=== PATIENT | male | born 1995 | race African-American/Black ===

== ENCOUNTER 2020-08-19 22:40 | Emergency (ER) | payer OTHER, SELFPAY ==
--- NOTE | ~2020-08-19 | CT_ITS ---
EXAMINATION: CT abdomen pelvis w con DATE: 08/20/2020 00:59 INDICATION: Abdominal pain. TECHNIQUE: Computed tomography (CT) of the abdomen and pelvis was performed with 100 mL Omnipaque 350 intravenous contrast. Automated exposure control and iterative reconstruction technique were employe d. The dose-length product was 676.10 mGy-cm. COMPARISON: None. FINDINGS: The visualized portions of the lung bases are clear without pneumonia or pleural effusion. The heart size is normal. No pericardial effusion. The liver, gallbladder, spleen, pancreas, adrenal glands, and kidneys are normal. There are no dilated loops of bowel. The appendix is normal. There ar e no pathologically enlarged lymph nodes. There is no free intraperitoneal fluid. The bones are unrem arkable. IMPRESSION: 1. No etiology for the patient's symptoms. Reviewed, dictated and finalized at location A.
[2020-08-19 22:57] VITALS: BP 133/86; PULSE 83; RESP 16; TEMP 36.4; O2SAT 97
[2020-08-19 23:31] LABS: Basophils Absolute Auto 0.1 K/mm3 (0.0-0.1); Basophils Percent Auto 0.5 % (0.2-1.2); Eosinophils Absolute Auto 0.2 K/mm3 (0-0.3); Hemoglobin 13.8 g/dL (14.0-18.0); Immature Granulocyte Absolute 0.04 K/mm3 (0.00-0.031); Immature Granulocyte Percent A 0.3 % (0-0.5); Lymphocytes Absolute Auto 3.44 K/mm3 (0.9-3.2); Lymphocytes Percent Auto 29.3 % (18.3-44.2); Mean Corpuscular HGB Conc 32.9 g/dl (32-36); Mean Corpuscular Hemoglobin 27.5 pg (26-34); Mean Corpuscular Volume 83.8 fl (80-100); Monocytes Absolute Auto 1.1 K/mm3 (0.1-0.6); Monocytes Percent Auto 9.1 % (2.6-8.5); Neutrophils Absolute Auto 6.9 K/mm3 (1.3-6.7); Neutrophils Percent Auto 58.8 % (45.5-73.1); Platelet Count Result 305 k/mm3 (150-375); Red Blood Count 5.01 M/mm3 (4.6-6.20); Red Cell Distribution Width 12.8 % (11.5-14.5); White Blood Count 11.7 K/mm3 (4.5-10.0)
[2020-08-19 23:45] LABS: Potassium 3.7 mmol/L (3.4-5.0)
[2020-08-19 23:48] LABS: Alanine Aminotransferase 63 U/L (4-50); Albumin Level 4.3 g/dL (3.5-5.1); Alkaline Phosphatase 79 U/L (38-126); Anion Gap 6 mmol/L (8-16); Aspartate Amino Transferase 35 U/L (17-59); Bilirubin,Total 0.4 mg/dL (0.2-1.3); Blood Urea Nitrogen 15 mg/dL (9-20); Calcium 9.5 mg/dL (8.4-10.2); Carbon Dioxide 29 mmol/L (22-30); Chloride 107 mmol/L (98-107); Estimated CRCL calculation 106 ml/min; Estimated Glomerular Filt Rate > 60; Glucose 108 mg/dL (75-110); Lipase 67 U/L (23-300); Sodium 142 mmol/L (137-145)
[2020-08-20 00:41] LABS: Add Urine Microscopic? NO; Appearance Urine Clear (Clear); Bilirubin Urine Negative (Negative); Blood Urine Negative (Negative); Color Urine Yellow (Yellow); Glucose Urine UA Negative (Negative); Ketones Urine Negative (Negative); Leukocyte Esterase Ur Negative LEU/UL (Negative); Nitrate Urine Negative (Negative); Protein Urine Negative (Negative); Specific Grav Ur 1.018 (1.001-1.035); Urobilinogen Urine Negative mg/dL (<2.0)
[2020-08-20] MEDS: ONDANSETRON INJ 4 MG/2 ML VIAL IV PUSH (00:54)
[2020-08-20] MEDS: SODIUM CHLORIDE 0.9% IV 1,000 ML 999 ML IV CONT (00:54)
--- NOTE | 2020-08-20 01:02 | ED.GENADULT ---
HPI - General Adult General Chief complaint: Abdominal Pain Stated complaint: Abd pain Time Seen by Provider: 08/19/20 23:42 History of Present Illness HPI narrative: Patient is a 24-year-old gentleman who presents to emergency department chief complaint of abdominal pain. Patient states that he has pain in the periumbilical area reports that is not improved by anything nor is it worsened by anything. Patient states that the pain does, radiate to his lower quadrants patient states the pain is an aching-like Related Data Allergies Allergy/AdvReac Type Severity Reaction Status Date / Time No Known Allergies Allergy Verified 08/19/20 23:14 Review of Systems Review of Systems: Narrative: A 10 system review of systems was completed on the patient and is negative except for what is stated in the HPI. Nursing and ancillary documentation was reviewed. PMFSH Comments Patient denies past medical history Social history patient denies illicit drug use Exam Narrative: Exam Narrative: GENERAL: Well-appearing, well-nourished, and in no acute distress. HEAD: Normocephalic, atraumatic. EYES: PERRLA and EOMI. ENT: Nares clear, no rhinorrhea or epistaxis. Mucous membranes moist. NECK: Supple. CHEST: Clear to auscultation. No respiratory distress. HEART: Regular rate and rhythm. No murmur heard. Normal peripheral pulses. ABDOMEN: Soft, mild tenderness to palpation, nondistended, normal active bowel sounds. EXTREMITIES: Normal range of motion. No edema. SKIN: Warm, dry, no rash. NEURO: No focal deficits. Alert and oriented x3. PSYCH: Normal mood and affect. Course Course Emergency Course: CT scan shows no acute abnormalities Vital Signs Vital signs: Vital Signs Temperature 36.4 C L 08/19/20 22:57 Pulse Rate 83 08/19/20 22:57 Respiratory Rate 16 08/19/20 22:57 Blood Pressure 133/86 08/19/20 22:57 Pulse Oximetry 97 08/19/20 22:57 Temperature 36.4 C L 08/19/20 22:57 Pulse Rate 70 08/20/20 01:07 Respiratory Rate 16 08/20/20 01:07 Blood Pressure 119/83 08/20/20 01:07 Pulse Oximetry 98 08/20/20 01:07 Medical Decision Making Vital Signs Vital Signs: Vital Signs Temperature 36.4 C L 08/19/20 22:57 Pulse Rate 83 08/19/20 22:57 Respiratory Rate 16 08/19/20 22:57 Blood Pressure 133/86 08/19/20 22:57 Pulse Oximetry 97 08/19/20 22:57 Temperature 36.4 C L 08/19/20 22:57 Pulse Rate 70 08/20/20 01:07 Respiratory Rate 16 08/20/20 01:07 Blood Pressure 119/83 08/20/20 01:07 Pulse Oximetry 98 08/20/20 01:07 Lab Data Result diagrams: 08/19/20 23:24 08/19/20 23:24 Labs: Lab Results 08/19/20 08/19/20 08/20/20 Range/Units 23:24 23:24 00:26 WBC 11.7 H (4.5-10.0) K/mm3 RBC 5.01 (4.6-6.20) M/mm3 Hgb 13.8 L (14.0-18.0) g/dL Hct 42.0 (42.0-52.0) % MCV 83.8 (80-100) fl MCH 27.5 (26-34) pg MCHC 32.9 (32-36) g/dl RDW 12.8 (11.5-14.5) % Plt Count 305 (150-375) k/mm3 MPV 9.0 (7.4-10.4) fl Immature Gran % (Auto) 0.3 (0-0.5) % Neut % (Auto) 58.8 (45.5-73.1) % Lymph % (Auto) 29.3 (18.3-44.2) % Bowie % (Auto) 9.1 H (2.6-8.5) % Eos % (Auto) 2.0 (0-4.4) % Baso % (Auto) 0.5 (0.2-1.2) % Lymph # (Auto) 3.44 H (0.9-3.2) K/mm3 Bowie # (Auto) 1.1 H (0.1-0.6) K/mm3 Eos # (Auto) 0.2 (0-0.3) K/mm3 Baso # (Auto) 0.1 (0.0-0.1) K/mm3 Abs Immat Gran (auto) 0.04 H (0.00-0.031) K/mm3 Absolute Neuts (auto) 6.9 H (1.3-6.7) K/mm3 Absolute Nucleated RBC 0.0 (0.0-0.012) K/mm3 Nucleated RBC % 0.0 (0.0-0.2) % Sodium 142 (137-145) mmol/L Potassium 3.7 (3.4-5.0) mmol/L Chloride 107 (98-107) mmol/L Carbon Dioxide 29 (22-30) mmol/L Anion Gap 6 L (8-16) mmol/L BUN 15 (9-20) mg/dL Creatinine 1.10 (0.7-1.3) mg/dL Estim Creat Clear Calc 106 ml/min Estimated GFR > 60 (59 - ) Glucose 108 (75-110) mg/dL
[2020-08-20 01:07] VITALS: BP 119/83; PULSE 70; RESP 16; O2SAT 98
[2020-08-20 02:30] VITALS: BP 119/84; PULSE 57; RESP 16; O2SAT 100
== END 2020-08-20 02:40 | disposition home or self-care (01) ==
PROVIDERS: Emergency Provider Emergency Medicine
DX: R10.84 Generalized abdominal pain (principal)
CPT/HCPCS: 36415; 74177; 80053; 81003; 83690; 85025; 96361; 96374; 99284; J2405; J7030; Q9967

== ENCOUNTER 2022-02-05 18:02 | Emergency (ER) | payer OTHER, SELFPAY ==
[2022-02-05 18:15] VITALS: BP 128/59; PULSE 74; RESP 20; TEMP 36.6; O2SAT 100
--- NOTE | 2022-02-05 18:38 | ED.EYEPROB ---
HPI - Eye Problem General Chief complaint: Eye Problems Stated complaint: fb in left eye Time Seen by Provider: 02/05/22 18:20 Source: patient Mode of arrival: ambulatory Limitations: no limitations History of Present Illness HPI Narrative: Mr. Nguyen is a 26-year-old male patient presenting to the clinic today with complaints of possible foreign body in his left eye. Ports that he was playing sand volleyball yesterday and thinks some sand got into his eye. He reports left eye swelling and discomfort. Related Data Allergies Allergy/AdvReac Type Severity Reaction Status Date / Time No Known Allergies Allergy Verified 02/05/22 18:31 Review of Systems Review of Systems: Pertinent positives per HPI. Patient denies any fever, chills, rash, headache, visual changes, dizziness, cough, runny nose, sore throat, shortness of breath, chest pain, palpitations, nausea, vomiting, diarrhea, constipation, abdominal pain, or any urinary issues. PMFSH Comments At the time of my signature, I reviewed and agree with the nursing past medical, surgical, social, and family history. There is no relevant family history pertinent to the patient complaint. Exam Narrative: General: Well-developed, well nourished, in no apparent distress Head: Normocephalic, atraumatic Eyes: Pupils equally round and reactive to light bilaterally, EOM intact, right sclera and conjunctive clear, left sclera injected with mild redness to the conjunctiva, no discharge, left upper lid swelling, Pemberton lamp exam performed and found corneal abrasion at 11:00 of the pupil. No obvious foreign body visualized. Cardio: Regular rate and rhythm, s1 and s2 normal, no murmur appreciated. Resp: Clear to auscultation bilaterally anteriorly and posteriorly, no rhonchi, rales, wheezing or rubs Course Course Emergency Course: Portions of this record may have been created with voice recognition software. Level of Care: Express Care Visit Vital Signs Vital signs: Vital Signs Temperature 36.6 C 02/05/22 18:15 Pulse Rate 74 02/05/22 18:15 Respiratory Rate 20 02/05/22 18:15 Blood Pressure 128/59 L 02/05/22 18:15 Pulse Oximetry 100 02/05/22 18:15 Oxygen Delivery Room Air 02/05/22 18:15 Temperature 36.6 C 09/04/22 18:15 Pulse Rate 74 02/05/22 18:15 Respiratory Rate 20 02/05/22 18:15 Blood Pressure 128/59 L 02/05/22 18:15 Pulse Oximetry 100 02/05/22 18:15 Oxygen Delivery Room Air 02/05/22 18:15 Vital signs reviewed Procedures FB Removal Eye Foreign Body #1: Foreign Body Removal Date: 02/05/22 Foreign Body Removal Narrative: Two drops of topical anesthetic (tetracaine) was instilled into left eye. Anesthesia was appropriate fluorescein stain of the left eye was performed corneal abrasion visualized at 11:00 just outside the pupil, NO FB, ulcer or dendritic lesions noted. Upper and lower lid lid was everted and no FB or lesions were noted. NO Danny sign. Normal saline irrigation eye solution was performed and the patient tolerated the procedure well, no adverse reaction or complications. MDM - Eye Problem MDM Narrative Medical decision making narrative: At the time of visit patient is resting comfortably on the exam table. Pemberton lamp exam was performed and it was found the patient had a corneal abrasion at 11:00. No foreign body was visualized. We will send in prescription for some E-Mycin ointment and supportive measures were discussed with the patient he voiced understanding of discharge instructions and agrees to the treatment plan. Differential Diagnosis Differential diagnosis: Likely corneal abrasion, conjunctivitis, ruptured globe and other (Foreign body in left eye) Discharge Plan Discharge Clinical Impression: Corneal abrasion Qualifiers: Encounter type: initial encounter Laterality: left Qualified Code(s): S05.02XA - Injury of conjunctiva and corneal abrasion without foreign body, left eye, initial encounter
== END 2022-02-05 18:53 | disposition home or self-care (01) ==
PROVIDERS: Emergency Provider Nurse Practitioner Family
DX: S05.02XA Injury of conjunctiva and corneal abrasion without foreign body, left eye, initial encounter (principal); X58.XXXA Exposure to other specified factors, initial encounter
CPT/HCPCS: 99213; A9270; G0463

== ENCOUNTER 2025-02-28 08:16 | Emergency (ER) | payer OTHER, SELFPAY ==
--- OUTSIDE RECORDS SUMMARY | 2025-02-28 08:19 | XMS_ITS | Clinical Summary ---
Author Organization [facility] Address [address] [place] [address] Phone Care Team Providers Care Heddler Name Role Phone Provider, None Primary Care Provider Unavailabl e Allergies No known active allergies Medications HYDROcodone-pramod taminophen (NORCO) 5-325 MG TabletIndicatio ns:Closed fracture of right talus Take 1-2 Tablets by mouth every 4 hours as needed for Moderate or more severe pain. 20 Tablet 04/11/2021 Active Active Problems No known active problems Family History Medical History Relation Name Comments No Known Problems Father Asthma Maternal Grandmother Diabetes Maternal Grandmother Hypertension Maternal Grandmother No Known Problems Mother Alzheimer's Disease Paternal Grandfather Relation Name Status Comments Father Alive Maternal Grandfather Alive Maternal Grandmother Alive Mother Alive Paternal Grandfather Paternal Grandmother Alive Social History Tobacco Use Types Packs/Day Years Used Date Smoking Tobacco: Former Cigarettes Smokeless Tobacco: Never Tobacco Cessation:Ready to Q uit: No; Counseling Given: Yes Alcohol Use Standard Drinks/Week Comments Yes 0 (1 standard drink = 0.6 oz pur e alcohol) ocassionally Sexually Active Control Partners Comments Yes Female Sex and Gender Information Value Date Recorded Sex Assigned at Not on file Legal Sex Male 12:04 AM CDT Gender Identity Not on file Sexual Orientation Not on file Last Filed Vital Signs Vital Sign Reading Time Taken Comments Blood Pressure 115/68 04/11/2021 10:04 PM [employer] Pulse 72 04/11/2021 8:26 PM [employer] Temperature 36.4 C (97.6 F) 04/11/2021 8:26 PM [employer] Respiratory Rate 18 04/11/2021 8:26 PM [employer] Oxygen Saturation 99% 04/11/2021 8:26 PM [employer] Inhaled Oxygen Concentration - - Weight 97.5 kg (215 lb) 04/11/2021 8:26 PM [employer] Height 177.8 cm (5' 10) 04/11/2021 8:26 PM [employer] Body Mass Index 30.85 04/11/2021 8:26 PM [employer] Plan of Treatment Health Maintenance Due Date Last Done Comments Hepatitis C Virus (HCV) Screening 1993 Human Papillomavirus (HPV) Immunization (1 - 3-dose SCDM series) 2020 Influenza Immunization (#1) 2025 SARS-COV-2 Immunization ( season) 2025 Respiratory Syncytial Virus (RSV) Immunization (Adult) (1 - 1-dose 75+ series) 2068 Hepatitis B Immunization Completed 995, 01/19/1994, 1993 DTaP/Tdap/Td Immunization Discontinued 2006, 07/14/1994, 04/21/1994, Additional history exists TdaP Immunization Completed 12/18/2006 Meningococcal Immunization (ACWY) Completed 12/07/2011, 12/18/2006 Pneumococcal Immunization Combined Aged Out No longer eligible based on patient's age to complete this topic Rotavirus Immunization Aged Out No lo nger eligible based on patient's age to complete this topic Insurance [employer] [facility] MEDICAID PENDING on file MEDICAID [place] Care Teams Heddler Relationship Specialty Start Date End Date Provider, None [place] PCP - General 03/12/17
[2025-02-28 08:22] VITALS: BP 151/87; PULSE 65; RESP 18; TEMP 36.5; O2SAT 100
--- NOTE | 2025-02-28 08:26 | ED.EYEPROB ---
HPI - Eye Problem General Chief complaint: Eye Problems Stated complaint: left eye swollen Time Seen by Provider: 02/28/25 08:26 Source: patient Mode of arrival: ambulatory Limitations: no limitations History of Present Illness HPI Narrative: 29 y/o male presented for c/o swelling around the left eye. Onset yesterday. States he developed a red rash to the forehead and eye yesterday as well. Says the eye is more swollen this morning. Has not applied anything in attempt to treat. Denies headache, vision changes, photophobia, eye pain or drainage. Denies itching to the rash. Pt denies any new exposures, he admits to working with mosquito chemicals but nothing new. chief complaint: eye pain Related Data Allergies Allergy/AdvReac Type Severity Reaction Status Date / Time No Known Allergies Allergy Verified 02/28/25 08:28 Review of Systems Review of Systems: CONSTITUTIONAL: Denies body aches, fever, chills EYES: Endorses swelling around left eye Denies visual changes, FB sensation, photophobia ENT: Denies rhinorrhea, congestion, sore throat, or otalgia. CARDIOVASCULAR: Denies chest pain, palpitations RESPIRATORY: Denies cough or dyspnea. SKIN: reports rash on face, denies itching MUSCULOSKELETAL: Denies back pain, joint pain, or myalgia. NEUROLOGIC: Denies headache, numbness, tingling, or weakness. All systems reviewed & are unremarkable except as noted in HPI and below PMFSH Comments At time of signature, I have reviewed and agree with nursing past medical, surgical, social and family history unless otherwise noted. Please see nursing chart for further information. There is no relevant family history pertinent to the presenting complaint Exam Narrative: GENERAL: Well-appearing HEAD: Normocephalic, atraumatic. EYES: Mildly erythematous papular rash to left forehead, extending to left lower eye lid; Nontender. Left lower eye lid swelling, mild, no occlusion. Nontedner. PERRLA, EOMI. Lid eversion shows no FB. No conjunctival injection or drainage. No stye noted. ENT: Mucous membranes pink and moist. No rhinorrhea. TMs normal bilaterally. Throat normal. Uvula midline. CHEST: Clear to auscultation. HEART: Regular rate and rhythm. SKIN: Warm, dry, no rash. Normal skin turgor. NEURO: No focal deficits. Alert and oriented x3 PSYCH: Normal affect. Course Course Emergency Course: Patient is aware of diagnosis, understands and agrees to treatment plan. Anticipatory guidance given. Patient agrees to follow-up as directed and is aware of reasons to seek care at the emergency department. Portions of this record may have been created with voice recognition software Level of Care: Express Care Visit Vital Signs Vital signs: Vital Signs Temperature 97.7 F 02/28/25 08:22 Pulse Rate 65 02/28/25 08:22 Respiratory Rate 18 02/28/25 08:22 Blood Pressure 151/87 H 02/28/25 08:22 Pulse Oximetry 100 02/28/25 08:22 Oxygen Delivery Room Air 02/28/25 08:22 Temperature 97.7 F 02/28/25 08:22 Pulse Rate 65 02/28/25 08:22 Respiratory Rate 18 02/28/25 08:22 Blood Pressure 151/87 H 02/28/25 08:22 Pulse Oximetry 100 02/28/25 08:22 Oxygen Delivery Room Air 02/28/25 08:22 MDM - Eye Problem MDM Narrative Medical decision making narrative: Discussed physical exam findings c/w dermatitis around left eye; no apparent zoster or stye formation, no conjunctivitis. . Advised supportive measures and signs/symptoms to go to the ER. Pt is appropriate for outpt treatment and f/u. Differential Diagnosis Differential diagnosis: Likely corneal abrasion, conjunctivitis, acute iritis, periorbital cellulitis and other (stye, chalazion, dermatitis, zoster) Discharge Plan Discharge Clinical Impression: Dermatitis Patient Disposition: Home Condition: Stable Instructions: Antibiotic Form, Dermatitis (ED) Additional Instructions: Take steroid as directed. Benadryl every 8 hours as needed; or you can take Zyrtec/Claritin according to package directions Cool compresses to the eye area Follow up with your primary care provider as needed in 1 week Go to the ER for worsening symptoms or concerns (lip, tongue, throat swelling/itching, trouble breathing etc) Patient Language: [place] Prescriptions: New prednisone 20 mg tablet 40 mg PO DAILY 5 Days Qty: 10 0RF Follow-up/Referrals: PHYSICIAN,INTERNET [employer] SPECIALIST [Primary Care Provider, Internal Medicine] Time of Disposition: 08:36
== END 2025-02-28 08:38 | disposition home or self-care (01) ==
PROVIDERS: Emergency Provider Nurse Practitioner Family
DX: L30.9 Dermatitis, unspecified (principal); H01.9 Unspecified inflammation of eyelid
CPT/HCPCS: 99213; G0463